=== PATIENT | male | born 1975 | race Caucasian/White ===

== ENCOUNTER 2016-08-28 12:36 | Emergency (ER) | payer BC ==
[~2016-08-28] VITALS: Ht 185.4 cm; Wt 117.0 kg
[2016-08-28 12:37] VITALS: Ht 185.4 cm; Wt 117.0 kg
--- NOTE | 2016-08-28 15:05 | RADRPT ---
PROCEDURE: CT Abdomen and Pelvis without contrast. CLINICAL INDICATION: Abdominal pain. TECHNIQUE: Routine abdominopelvic CT was performed without intravenous contrast. Radiation dose: CTDIvol (mGy) = 21.8; total DLP (mGy-cm) = 1549. One or more of the following dose reduction techniques were used: - Automated exposure control. - Adjustment of the mA and/or kV according to patient size. - Use of iterative reconstruction technique. COMPARISON: None. FINDINGS: There is a 3 mm obstructing distal left ureteral calculus with ipsilateral mild to moderate hydroure teronephrosis and perinephric inflammation. The right kidney and collecting system are within normal limits. There is a normal appendix. There are diffuse steatotic changes evident within the liver. Gallbladder, biliary system, pancreas , adrenal glands, and spleen are unremarkable by unenhanced CT. No abnormal bowel wall thickening o r dilatation. No free fluid or fluid collection. No lymphadenopathy. IMPRESSION: 3 mm obstructing distal left ureteral calculus with ipsilateral mild to moderate hydroureteronephros is and perinephric inflammation. RPTAT: [facility] .Maurilio Hollis MD, MD Date Time Electronically viewed and signed by .Maurilio Hollis MD, on 08/28/2016 15:05 .C/
[2016-08-28 15:12] LABS: URINE BLOOD (Dip) POC 3+ (NEGATIVE)
[2016-08-28] MEDS ORDERED: HYDR-906 PO (15:27)
[2016-08-28] MEDS ORDERED: ONDA8TAB14 PO (15:27)
[2016-08-28] MEDS ORDERED: TAMS-14 PO (15:27)
--- NOTE | 2016-08-28 15:31 | ERD ---
ER Documentation Chief Complaint Date/Time DATE: 08/28/16 TIME: 15:29 Chief Complaint ap onset 0600 in am HPI This 40-year-old male complains of sudden onset of left flank pain rating to left groin is been intermittent since early this morning. Denies fevers vomiting or signs. Chest pain denies any obvious hematuria. She has a history of kidney stones last 1 years ago. ROS All systems reviewed and are negative except as per history of present illness. Medications Home Meds Active Scripts Tamsulosin Hcl* (Flomax*) 0.4 Mg Cap.er.24h, 0.4 MG PO BID, #15 CAP Prov:DION RAMSEY MD 08/28/16 Hydrocodone/Acetaminophen (Collins 5-325 Tablet) 1 Each Tablet, 1 TAB PO Q6H Y for PAIN, #12 TAB Prov:DION RAMSEY MD 08/28/16 Ondansetron (Ondansetron Odt) 8 Mg Tab.rapdis, 8 MG PO Q6H Y for NAUSEA AND/OR VOMITING, #10 TAB Prov:DION RAMSEY MD 08/28/16 PMhx/Soc Hx Miscellaneous Medical Probl: Yes (KIDNEY STONES ) Hx Alcohol Use: Yes Hx Substance Use: No Hx Tobacco Use: No Physical Exam Vitals Vital Signs Date Time Temp Pulse Resp B/P Pulse Ox O2 Delivery O2 Flow Rate FiO2 08/28/16 12:37 97.2 65 18 160/89 99 Physical Exam Const: [] Alert, not ill-appearing. Head: Atraumatic Eyes: Normal Conjunctiva ENT: Normal External Ears, Nose and Mouth. Neck: Full range of motion..~ No meningismus. Resp: Clear to auscultation bilaterally Cardio: Regular rate and rhythm, no murmurs Abd: Soft, non tender, non distended. Normal bowel sounds Skin: No petechiae or rashes Back: No midline or flank tenderness Ext: No cyanosis, or edema Neur: Awake and alert Psych: Normal Mood and Affect Results 24 hrs Laboratory Tests Test 08/28/16 15:14 Bedside Urine pH (LAB) 6.0 Bedside Urine Protein (LAB) Negative Bedside Urine Glucose (UA) Negative Bedside Urine Ketones (LAB) Negative Bedside Urine Blood 3+ Bedside Urine Nitrite (LAB) Negative Bedside Urine Leukocyte Esterase (L Negative Procedures/MDM Urine shows positive hemoglobin without leukocytes, nitrites glucose. CT abdomen and pelvis shows 3 mm kidney stone at the LEFT UV junction. Patient states that his pain is improved currently. Patient be treated for carcinoma: Zofran and instructions for clear fluids. Patient was advised to follow-up with urology for persistent symptoms or return for fevers, vomiting, worsening symptoms. The patient was stable with no new complaints during the ER course. Clinically, there is no current evidence to suggest meningitis, sepsis, acute abdomen, pneumonia, acute coronary syndrome, pulmonary embolism, or any other emergent condition appearing to require further evaluation or hospitalization. The patient should certainly return for any new or worsening symptoms per the aftercare instructions. They should otherwise follow-up with her primary care doctor for reevaluation this week. Departure Diagnosis: Primary Impression: Kidney stone Condition: Stable Patient Instructions: Kidney Stone W/ Colic Referrals: JIM PERRIN MD,LION Soriano MD Additional Instructions: CT scan showing confirms kidney stone as source of pain is 3 mm and near bladder. Drink clear fluids at home. See urology for persistent symptoms return for fevers, vomiting, new or worsening symptoms. DION RAMSEY MD August 28, 2016 15:31
== END 2016-08-28 16:05 | disposition home or self-care (01) ==
LOC: FTE 12:36
DX: N20.0 Calculus of kidney (principal)
CPT/HCPCS: 74176; 81003